=== PATIENT | male | born 1965 | race Caucasian/White ===

== ENCOUNTER → 2017-11-19 | Outpatient (CLI) | payer BC ==
[2017-11-19 11:55] VITALS: BP 138/82; PULSE 89; RESP 16; TEMP 98.5
--- NOTE | 2017-11-19 12:05 | P.PAINPG ---
Subjective Progress Note Date: 11/19/17 Principal diagnosis: Post laminectomy syndrome, vertebral fracture This a very pleasant 52-year-old gentleman with a long-standing history of low back pain. He is undergone previous spinal fusion on multiple occasions. He does have a diagnosis of vertebral body fracture. This continues to cause of intractable pain. He is undergone transforaminal epidural steroid injections at the L3 4 interspace on the right side in the past. These have been extremely helpful in reducing his pain. The combination of these injections with his medications and the exercises he received from physical therapy which he does on a daily basis have allowed him to continue with quality of life. Prior to the injections and the physical therapy interventions and exercises, he reported that he was suffering severely and had very little quality of life. He reports pain is in his back. It radiates down his legs very seldomly. He denies any weakness in his legs. He denies bowel or bladder dysfunction. Objective - Vital Signs Vital signs: Vital Signs Temp 98.5 F 11/19/17 11:54 Pulse 89 11/19/17 11:54 Resp 16 11/19/17 11:54 BP 138/82 11/19/17 11:54 Pulse Ox 96 11/19/17 11:54 Intake & Output 11/18/17 11/19/17 11/19/17 18:59 06:59 18:59 Weight 111.13 kg - Exam General: The patient is alert and oriented. Patient is not sedateded Patient answers all question appropriately. Cardiac: Heart is regular in rate and rhythm Respiratory: Clear to auscultation. No audible wheezes. Abdomen: Soft nontender nondistended. Lower extremities: Strength is normal bilaterally. Sensation is normal bilaterally. Reflexes are preserved and symmetric bilaterally. Straight leg raise is negative bilaterally. He is tender to palpation over the vertebral bodies on the right side at approximately the L3 4 location. No palpable trigger points are present. Assessment and Plan (1) Post laminectomy syndrome Narrative/Plan: Plan of Care 1. Medications: Patient receives his medications through the [facility]. He will continue to receive these medicines from them. I have reviewed the patient's MAPS report and it reveals expected results. Patient has signed an opiate agreement as well as opiate consent for treatment in our clinic. They understand the risks and benefits of opiate medications. They are aware of the potential for addiction. 2. Interventions: We will schedule the patient for a transforaminal epidural steroid injection at the L3 4 interspace. This is been very helpful for him in the past. 3. Referrals: None 4. Testing: None 5. Psychological: Patient denies significant anxiety or depression. I will not refer him to a psychologist today. Current Visit: Yes Status: Acute Code(s): M96.1 - POSTLAMINECTOMY SYNDROME, NOT ELSEWHERE CLASSIFIED SNOMED Code(s): 11049593 (2) Vertebral fracture, closed Current Visit: Yes Status: Acute Code(s): OTX8393 - SNOMED Code(s): 14228168 PQRS Measure Charge Sheet Measure #130: Documentation of Current Meds in Medical Chart: Patient's medications documented in chart Measure #226: Tobacco Use: Screen & Cessation Intervention: Pt not a tobacco user Measure #111: Pneumonia Vaccination: Pneumococcal vaccine NOT administered or previously given Measure #47: Advance Care Plan: Advance care planning discussed & documented, pt chose/unable to give Measure #412: Opioid Treatment Agreement: No documentation of signed opioid treatment agreement Measure #408: Opioid Therapy Follow-up Evaluation: Patient had NO f/u eval minimum every 3 months during opioid therapy Measure #317: Preventitive Care & Scrn High Bld Press & F/U: Normal blood pressure, f/u not required Measure #128: Body Mass Index (BMI) Screening & Follow-up: BMI documented within normal parameters Measure #131: Pain Assessment & Follow-up: Pain positive & plan documented Measure #431: Unhealthy Alcohol Use Preventative Care & Scrn: Patient not identified as an unhealthy alcohol user PQRS Narrative: Smoking Status Never smoker Do You Want the Pneumonia No Vaccine AT THIS TIME? Blood Pressure 138/82 Hx Alcohol Use (MH) Yes: RARE Home Medications: Ambulatory Orders Citalopram Hydrobromide [CeleXA] 10 mg PO DAILY 11/19/17 Cyclobenzaprine [Flexeril] 10 mg PO Q8H PRN 11/19/17 Enalapril/Hydrochlorothiazide [Vaseretic 5-12.5 mg] 12.5 mg PO DAILY 11/19/17 Simvastatin [Zocor] 10 mg PO HS 11/19/17 oxyCODONE HCL [oxyCODONE HCL ER] 30 mg PO Q6H PRN 11/19/17 Controlled Substance Measures - Controlled Substance Measures Is patient prescribed a controlled substance at discharge?: No
== END | disposition home or self-care (01) ==
LOC: PNWHC3 11:26
PROVIDERS: ATTEND Pain Medicine Pain Medicine
DX: M96.1 Postlaminectomy syndrome, not elsewhere classified (principal); S32.009D Unspecified fracture of unspecified lumbar vertebra, subsequent encounter for fracture with routine healing; Z98.1 Arthrodesis status; Z79.891 Long term (current) use of opiate analgesic; Z79.899 Other long term (current) drug therapy
CPT/HCPCS: 99201